=== PATIENT | male | born 1930 | race Two or more races ===

== ENCOUNTER 2017-02-06 13:15 | Emergency (ER) | payer OTHER, MEDICAID ==
[~2017-02-06] VITALS: Ht 162.6 cm; Wt 72.6 kg
[2017-02-06 13:32] VITALS: BP 127/81
== END 2017-02-06 17:11 | disposition left against medical advice (07) ==
LOC: ER 13:15
DX: R10.9 Unspecified abdominal pain (principal); Z53.21 Procedure and treatment not carried out due to patient leaving prior to being seen by health care provider
CPT/HCPCS: 93005

== ENCOUNTER 2017-12-30 09:09 | Emergency (ER) | payer OTHER, MEDICAID ==
[~2017-12-30] VITALS: Ht 157.5 cm; Wt 72.6 kg
[2017-12-30 10:06] LABS: Basophils # (auto) 0.1 uL; Basophils % (auto) 1.4 % (0.0-2.0); Eosinophils # (auto) 0.2 uL; Hemoglobin 15.6 g/dL (13.5-17.5); Lymphocytes # (auto) 1.1 uL; Lymphocytes % (auto) 24.8 % (10.0-50.0); Mean Corpuscular Hemoglobin 32.4 pg (28.0-32.0); Mean Corpuscular Volume 95.2 fL (80.0-100.0); Monocytes # (auto) 0.5 uL; Neutrophils # (auto) 2.7 uL; Neutrophils % (auto) 59.8 % (37.0-80.0); Nucleated Red Blood Cells % 0.1 %; Platelet Count (auto) 158 10^3/uL (140-450); Red Blood Cells 4.83 10^6/uL (4.5-5.90); Red Cell Distribution Width 13.8 % (11.8-14.3); White Blood Cell 4.6 10^3/uL (4.4-10.8)
[2017-12-30] MEDS ORDERED: ASPirin 81 mg TAB PO ONE (10:15)
[2017-12-30] MEDS ORDERED: NITROGLYCERIN 0.4 MG SL TAB SL ONE (10:15)
[2017-12-30 10:30] VITALS: BP 131/78
[2017-12-30 10:30] LABS: Alanine Aminotransferase 23 U/L (16-61); Albumin 3.6 g/dL (3.4-5.0); Alkaline Phosphatase 105 U/L (45-117); Anion Gap 7 (5-15); Aspartate Aminotransferase 18 U/L (15-37); BUN/Creatinine Ratio 18.8; Bilirubin, Total 0.7 mg/dL (0.2-1.0); Blood Urea Nitrogen 21 mg/dL (7-18); Calcium 8.7 mg/dL (8.5-10.1); Carbon Dioxide 27 mmol/L (21-32); Chloride 102 mmol/L (98-107); GFR African American 80 mL/min; GFR Non-African American 66 mL/min; Glucose 101 mg/dL (74-106); Magnesium 2.5 mg/dL (1.6-2.6); Potassium 3.6 mmol/L (3.5-5.1); Sodium 136 mmol/L (136-145); Total Protein 7.5 g/dL (6.4-8.2)
== END 2017-12-30 12:25 | disposition home or self-care (01) ==
LOC: ER 09:09
DX: R07.89 Other chest pain (principal); I10 Essential (primary) hypertension
CPT/HCPCS: 36415; 71046; 80053; 83735; 83880; 84484; 85025; 93005; 94761

== ENCOUNTER 2018-03-05 16:10 | Emergency (ER) | payer OTHER, MEDICAID ==
[2018-03-05] MEDS ORDERED: PANTOPRAZOLE 40 MG/10 ML VIAL IV STA (16:53)
[2018-03-05] MEDS ORDERED: ONDANSETRON HCL 4 MG/2 ML VIAL IV ONE (17:00)
[2018-03-05] MEDS ORDERED: MORPHINE SULFATE 4 MG/ML SYR/VIAL IV ONE (17:00)
[2018-03-05 17:28] LABS: Basophils # (auto) 0.1 uL; Basophils % (auto) 1.1 % (0.0-2.0); Eosinophils # (auto) 0.2 uL; Eosinophils % (auto) 2.7 % (0.0-7.0); Hematocrit 46.6 % (41.0-53.0); Hemoglobin 16.1 g/dL (13.5-17.5); Lymphocytes # (auto) 1.2 uL; Mean Corpuscular Hemoglobin 32.9 pg (28.0-32.0); Mean Corpuscular Hgb Conc. 34.4 g/dL (32.0-36.0); Mean Corpuscular Volume 95.6 fL (80.0-100.0); Monocytes # (auto) 0.6 uL; Monocytes % (auto) 10.3 % (0.0-12.0); Neutrophils # (auto) 4.1 uL; Neutrophils % (auto) 65.9 % (37.0-80.0); Nucleated Red Blood Cells % 0.2 %; Platelet Count (auto) 146 10^3/uL (140-450); Red Blood Cells 4.88 10^6/uL (4.5-5.90); Red Cell Distribution Width 13.8 % (11.8-14.3); White Blood Cell 6.2 10^3/uL (4.4-10.8)
[2018-03-05 17:45] LABS: Alanine Aminotransferase 22 U/L (16-61); Albumin 3.7 g/dL (3.4-5.0); Amylase 110 U/L (25-115); Anion Gap 11 (5-15); Aspartate Aminotransferase 24 U/L (15-37); Blood Urea Nitrogen 17 mg/dL (7-18); Calcium 8.6 mg/dL (8.5-10.1); Carbon Dioxide 27 mmol/L (21-32); Chloride 106 mmol/L (98-107); GFR African American 73 mL/min; GFR Non-African American 61 mL/min; Glucose 100 mg/dL (74-106); Lipase 211 U/L (73-393); Magnesium 2.3 mg/dL (1.6-2.6); Potassium 4.3 mmol/L (3.5-5.1); Sodium 144 mmol/L (136-145)
[2018-03-05 17:51] LABS: Alkaline Phosphatase 92 U/L (45-117); Bilirubin, Total 0.5 mg/dL (0.2-1.0); Total Protein 7.7 g/dL (6.4-8.2)
[2018-03-05 18:56] VITALS: BP 136/89
[2018-03-05 19:57] LABS: Urine Bacteria NONE SEEN /hpf (None Seen); Urine Blood Negative /uL (Negative); Urine Specific Gravity 1.013 (1.001-1.035); Urine WBC 3 /hpf (0 - 3)
== END 2018-03-05 20:47 | disposition home or self-care (01) ==
LOC: ER 16:10
DX: R10.31 Right lower quadrant pain (principal); R10.32 Left lower quadrant pain; R19.7 Diarrhea, unspecified; R11.0 Nausea; I10 Essential (primary) hypertension
CPT/HCPCS: 36415; 74176; 80053; 81001; 82150; 83690; 83735; 84484; 85025; 93005; 94761; 96374; 99284; C9113; J2405

== ENCOUNTER 2018-11-26 08:32 | Emergency (ER) | payer OTHER ==
[~2018-11-26] VITALS: Ht 160 cm; Wt 63.5 kg
[2018-11-26 09:17] VITALS: BP 166/88
[2018-11-26] MEDS ORDERED: TAMSULOSIN HYDROCHLORIDE 0.4 MG CAP PO ONE (10:00)
== END 2018-11-26 10:21 | disposition home or self-care (01) ==
LOC: ER 08:32
DX: Z76.0 Encounter for issue of repeat prescription (principal); I10 Essential (primary) hypertension

== ENCOUNTER 2018-12-10 09:49 | Emergency (ER) | payer OTHER ==
[2018-12-10 09:54] VITALS: BP 129/86
== END 2018-12-10 11:01 | disposition home or self-care (01) ==
LOC: ER 09:51
DX: I10 Essential (primary) hypertension (principal); Z76.0 Encounter for issue of repeat prescription

== ENCOUNTER 2018-12-18 09:09 | Emergency (ER) | payer OTHER ==
[~2018-12-18] VITALS: Ht 167.6 cm; Wt 68.9 kg
[2018-12-18 09:46] LABS: Basophils # (auto) 0 uL; Basophils % (auto) 0.8 % (0.0-2.0); Eosinophils # (auto) 0.1 uL; Eosinophils % (auto) 2.2 % (0.0-7.0); Hematocrit 49.1 % (41.0-53.0); Hemoglobin 16.6 g/dL (13.5-17.5); Lymphocytes # (auto) 1.1 uL; Lymphocytes % (auto) 25.6 % (10.0-50.0); Mean Corpuscular Hemoglobin 32.3 pg (28.0-32.0); Mean Corpuscular Hgb Conc. 33.8 g/dL (32.0-36.0); Mean Corpuscular Volume 95.5 fL (80.0-100.0); Monocytes # (auto) 0.4 uL; Monocytes % (auto) 8.5 % (0.0-12.0); Neutrophils # (auto) 2.7 uL; Neutrophils % (auto) 62.9 % (37.0-80.0); Nucleated Red Blood Cells % 0.1 %; Platelet Count (auto) 144 10^3/uL (140-450); Red Blood Cells 5.15 10^6/uL (4.5-5.90); Red Cell Distribution Width 14.1 % (11.8-14.3); White Blood Cell 4.3 10^3/uL (4.4-10.8)
[2018-12-18 10:05] LABS: Alanine Aminotransferase 17 U/L (16-61); Albumin 3.9 g/dL (3.4-5.0); Anion Gap 9 (5-15); Aspartate Aminotransferase 18 U/L (15-37); BUN/Creatinine Ratio 14.4; Blood Urea Nitrogen 16 mg/dL (7-18); Calcium 8.8 mg/dL (8.5-10.1); Carbon Dioxide 24 mmol/L (21-32); Chloride 104 mmol/L (98-107); GFR African American 81 mL/min; GFR Non-African American 67 mL/min; Glucose 115 mg/dL (74-106); Magnesium 1.9 mg/dL (1.6-2.6); Potassium 3.5 mmol/L (3.5-5.1); Sodium 137 mmol/L (136-145)
[2018-12-18 10:09] LABS: Alkaline Phosphatase 92 U/L (45-117); INR 1.01 (0.9-1.15); Partial Thromboplastin Time 28.9 sec (23.64-32.05); Total Protein 7.9 g/dL (6.4-8.2)
[2018-12-18 12:34] VITALS: BP 149/86
== END 2018-12-18 13:25 | disposition home or self-care (01) ==
LOC: ER 09:09
DX: M79.10 Myalgia, unspecified site (principal); K52.9 Noninfective gastroenteritis and colitis, unspecified; I10 Essential (primary) hypertension
CPT/HCPCS: 36415; 71046; 74176; 80053; 83735; 83880; 84484; 85025; 85610; 85730; 93005; 96372

== ENCOUNTER → 2019-01-18 | Outpatient (CLI) | payer MEDICARE, MEDICAID | END | disposition home or self-care (01) | LOC: Rad HDHVI 10:45 | PROVIDERS: ATTEND Internal Medicine Cardiovascular Disease | DX: R07.9 Chest pain, unspecified (principal); R06.02 Shortness of breath | CPT/HCPCS: 93306 ==

== ENCOUNTER → 2019-01-19 | Outpatient (CLI) | payer MEDICARE, MEDICAID ==
[~2019-01-19] VITALS: Ht 165.1 cm; Wt 73.9 kg
[~2019-01-19] MED LIST: ADENOSINE 62 MG in GIVE UN-DILUTED 0 ML IV ONE; ADENOSINE 90 MG/30 ML INJ IV ONE
[2019-01-19 12:02] LABS: Basophils # (auto) 0.1 uL; Basophils % (auto) 0.8 % (0.0-2.0); Eosinophils # (auto) 0.2 uL; Eosinophils % (auto) 2.4 % (0.0-7.0); Hematocrit 43.2 % (41.0-53.0); Hemoglobin 15.1 g/dL (13.5-17.5); Lymphocytes # (auto) 1.2 uL; Lymphocytes % (auto) 17.9 % (10.0-50.0); Mean Corpuscular Hgb Conc. 34.9 g/dL (32.0-36.0); Mean Corpuscular Volume 94.6 fL (80.0-100.0); Monocytes # (auto) 0.6 uL; Monocytes % (auto) 9.8 % (0.0-12.0); Neutrophils # (auto) 4.5 uL; Neutrophils % (auto) 69.1 % (37.0-80.0); Nucleated Red Blood Cells % 0.1 %; Platelet Count (auto) 171 10^3/uL (140-450); Red Blood Cells 4.57 10^6/uL (4.5-5.90); Red Cell Distribution Width 13.8 % (11.8-14.3); White Blood Cell 6.5 10^3/uL (4.4-10.8)
[2019-01-19 12:04] LABS: Urine Blood Negative /uL (Negative); Urine Specific Gravity 1.009 (1.001-1.035)
[2019-01-19 13:09] LABS: Potassium 3.9 mmol/L (3.5-5.1)
[2019-01-19 13:10] LABS: Albumin 4.1 g/dL (3.4-5.0); BUN/Creatinine Ratio 12.6
[2019-01-19 13:28] LABS: Free T4 (Free Thyroxine) 0.68 ng/dL (0.89-1.76)
[2019-01-19 13:29] LABS: Prostate Specific Antigen 2.41 ng/mL (0.0-4.0)
== END | disposition home or self-care (01) ==
LOC: Rad HDHVI 08:59
PROVIDERS: ATTEND Internal Medicine
DX: I70.0 Atherosclerosis of aorta (principal); E03.9 Hypothyroidism, unspecified; K90.9 Intestinal malabsorption, unspecified; E29.1 Testicular hypofunction; N39.0 Urinary tract infection, site not specified; C61 Malignant neoplasm of prostate; D51.9 Vitamin B12 deficiency anemia, unspecified; M48.54XA Collapsed vertebra, not elsewhere classified, thoracic region, initial encounter for fracture; Z79.899 Other long term (current) drug therapy
CPT/HCPCS: 36415; 71046; 78452; 80053; 80061; 81003; 82306; 82607; 83036; 84153; 84403; 84439; 84443; 85025; 93005; 96374; 96375; A9500; J0153

== ENCOUNTER 2019-02-02 14:31 | Emergency (ER) | payer MEDICARE, MEDICAID ==
[~2019-02-02] VITALS: Ht 167.6 cm; Wt 68.9 kg
[2019-02-02 14:45] VITALS: BP 126/69
[2019-02-02] MEDS ORDERED: KETOROLAC TROMETH 30 MG/ML 1ML VIAL IM ONE (16:15)
== END 2019-02-02 17:04 | disposition home or self-care (01) ==
LOC: ER 14:31
DX: S83.92XA Sprain of unspecified site of left knee, initial encounter (principal); M17.12 Unilateral primary osteoarthritis, left knee; I10 Essential (primary) hypertension; X50.1XXA Overexertion from prolonged static or awkward postures, initial encounter; Y93.89 Activity, other specified; Y92.89 Other specified places as the place of occurrence of the external cause; Y99.8 Other external cause status
CPT/HCPCS: 73562; 96372; 99283; J1885

== ENCOUNTER 2019-02-26 04:45 | Inpatient (IN) | payer MEDICARE, MEDICAID ==
[~2019-02-26] VITALS: Ht 167.6 cm; Wt 71.9 kg
[2019-02-26 05:40] LABS: Basophils # (auto) 0.1 uL; Eosinophils # (auto) 0.1 uL; Eosinophils % (auto) 1.1 % (0.0-7.0); Hematocrit 48.1 % (41.0-53.0); Lymphocytes # (auto) 1.5 uL; Lymphocytes % (auto) 18.6 % (10.0-50.0); Mean Corpuscular Hemoglobin 33.3 pg (28.0-32.0); Mean Corpuscular Hgb Conc. 35.3 g/dL (32.0-36.0); Mean Corpuscular Volume 94.3 fL (80.0-100.0); Monocytes # (auto) 0.9 uL; Monocytes % (auto) 10.8 % (0.0-12.0); Neutrophils # (auto) 5.5 uL; Neutrophils % (auto) 68.5 % (37.0-80.0); Nucleated Red Blood Cells % 0.1 %; Platelet Count (auto) 158 10^3/uL (140-450); Red Cell Distribution Width 14.1 % (11.8-14.3)
[2019-02-26 05:55] LABS: INR 1.06 (0.9-1.15); Partial Thromboplastin Time 28.1 sec (23.64-32.05)
[2019-02-26 06:01] LABS: Albumin 3.8 g/dL (3.4-5.0); Amylase 115 U/L (25-115); Anion Gap 6 (5-15); BUN/Creatinine Ratio 15.4; Blood Urea Nitrogen 20 mg/dL (7-18); Calcium 8.8 mg/dL (8.5-10.1); Carbon Dioxide 27 mmol/L (21-32); Chloride 103 mmol/L (98-107); GFR African American 67 mL/min; GFR Non-African American 56 mL/min; Glucose 99 mg/dL (74-106); Lipase 247 U/L (73-393); Potassium 3.3 mmol/L (3.5-5.1); Sodium 136 mmol/L (136-145)
[2019-02-26 06:06] LABS: Alanine Aminotransferase 27 U/L (16-61); Alkaline Phosphatase 108 U/L (45-117); Aspartate Aminotransferase 28 U/L (15-37); Bilirubin, Total 0.7 mg/dL (0.2-1.0); Total Protein 8.5 g/dL (6.4-8.2)
[2019-02-26] MEDS ORDERED: FAMOTIDINE (10MG/ML) 2ML VL IV ONE (06:30)
[2019-02-26] MEDS ORDERED: ONDANSETRON HCL 4 MG/2 ML VIAL IV ONE (06:45)
[2019-02-26] MEDS ORDERED: MORPHINE SULF INJ 2 MG/ML SYRINGE 1ML IV ONE (06:45)
[2019-02-26 08:14] LABS: Urine Bacteria FEW /hpf (None Seen); Urine Blood Negative /uL (Negative); Urine Mucus FEW (None Seen); Urine WBC 1 /hpf (0 - 3)
[2019-02-26] MEDS ORDERED: ACETAMINOPHEN 500 MG TAB PO PRN (09:30)
[2019-02-26] MEDS ORDERED: SOD CHL 0.9%/ KCL 20MEQ 1,000 ML IV ONE (09:30)
[2019-02-26] MEDS ORDERED: ONDANSETRON HCL 4 MG/2 ML VIAL IV PRN (09:30)
[2019-02-26] MEDS ORDERED: hydrALAZINE HCL 20 MG/ML VL IV PRN (09:30)
[2019-02-26] MEDS ORDERED: NITROGLYCERIN 0.4 MG SL TAB SL PRN (09:30)
[2019-02-26] MEDS ORDERED: HYDROcodone-ACET 5/325MG TAB PO PRN (09:30)
[2019-02-26] MEDS ORDERED: MORPHINE SULF INJ 2 MG/ML SYRINGE 1ML IV PRN ×2 (09:30)
[2019-02-26] MEDS: LEVOFLOXACIN 500MG 100 ML IV SCH (09:50)
[2019-02-26] MEDS: amLODIPine BESYLATE 5 MG TAB PO SCH (09:51)
[2019-02-26] MEDS: LOSARTAN POTASSIUM 25 MG TAB PO SCH (09:51)
[2019-02-26] MEDS: PANTOPRAZOLE 40 MG TAB PO SCH (09:52)
[2019-02-26] MEDS: metroNIDAZOLE 500MG/100ML 100 ML IV SCH ×2 (14:04→22:05)
[2019-02-26] MEDS: TAMSULOSIN HYDROCHLORIDE 0.4 MG CAP PO SCH (17:23)
--- NOTE | 2019-02-26 18:07 | NUR ---
RECEIVED REPORT FROM ALYCE SCHULER.
--- NOTE | 2019-02-26 18:30 | NUR ---
MS admit from ER [facility] admitted to tele/MS after SBAR received. Patient oriented to HEATHER MYERS, primary RN, unit, room, bed, and unit policies regarding patient care and visiting hours. Patient weighed by bedscale and encouraged to call if they need something. All questions and concerns addressed, patient verbalized understanding.
--- NOTE | 2019-02-26 19:54 | NUR ---
RECEIVED PT FROM DAY RN POC REVIEWED
[2019-02-26] MEDS: ATORVASTATIN 20 MG TAB PO SCH (22:05)
[2019-02-26] MEDS ORDERED: LOSA-39 PO (22:25)
[2019-02-26] MEDS ORDERED: OMEP20TA PO (22:25)
[2019-02-26] MEDS ORDERED: HYDR12.56 PO (22:25)
[2019-02-26] MEDS ORDERED: AMLO5TAB15 PO (22:25)
[2019-02-26] MEDS ORDERED: TAMS0.4C36 PO (22:25)
[2019-02-26] MEDS ORDERED: ROSU40TA PO (22:25)
[2019-02-26] MEDS ORDERED: VORT10TA PO (22:25)
--- NOTE | 2019-02-26 22:31 | NUR ---
RESTING COMFORTABLE WITH HOB UP NO C/O DISCOMFORT
[2019-02-26 22:39] VITALS: BP 124/74
[2019-02-27 05:00] VITALS: BP 119/75
--- NOTE | 2019-02-27 06:15 | NUR ---
RESTING WITH EYES CLOSED NO C/O DISCOMFORT
[2019-02-27] MEDS: metroNIDAZOLE 500MG/100ML 100 ML IV SCH ×3 (06:22→22:44)
--- NOTE | 2019-02-27 06:55 | NUR ---
REPORT GIVEN TO AM NURSE POC REVIEWED
[2019-02-27 07:09] LABS: Basophils # (auto) 0.1 uL; Basophils % (auto) 1.7 % (0.0-2.0); Eosinophils # (auto) 0.2 uL; Eosinophils % (auto) 3.1 % (0.0-7.0); Hematocrit 41.8 % (41.0-53.0); Hemoglobin 14.4 g/dL (13.5-17.5); Lymphocytes % (auto) 19.5 % (10.0-50.0); Mean Corpuscular Hemoglobin 32.8 pg (28.0-32.0); Mean Corpuscular Hgb Conc. 34.4 g/dL (32.0-36.0); Mean Corpuscular Volume 95.2 fL (80.0-100.0); Monocytes # (auto) 0.5 uL; Monocytes % (auto) 10.4 % (0.0-12.0); Neutrophils # (auto) 3.3 uL; Neutrophils % (auto) 65.3 % (37.0-80.0); Nucleated Red Blood Cells % 0.1 %; Platelet Count (auto) 140 10^3/uL (140-450); Red Blood Cells 4.39 10^6/uL (4.5-5.90); Red Cell Distribution Width 13.9 % (11.8-14.3)
[2019-02-27 07:22] LABS: BUN/Creatinine Ratio 10.5; Calcium 8.8 mg/dL (8.5-10.1)
[2019-02-27 09:50] VITALS: BP 124/76
[2019-02-27] MEDS: PANTOPRAZOLE 40 MG TAB PO SCH (10:08)
[2019-02-27] MEDS: LEVOFLOXACIN 500MG 100 ML IV SCH (10:08)
[2019-02-27] MEDS: amLODIPine BESYLATE 5 MG TAB PO SCH (10:09)
[2019-02-27] MEDS: LOSARTAN POTASSIUM 25 MG TAB PO SCH (10:09)
[2019-02-27 14:17] VITALS: BP 107/62
[2019-02-27 16:37] VITALS: BP 119/61
[2019-02-27] MEDS: TAMSULOSIN HYDROCHLORIDE 0.4 MG CAP PO SCH (17:22)
--- NOTE | 2019-02-27 19:49 | NUR ---
received report from day rn poc reviewed
[2019-02-27] MEDS: ATORVASTATIN 20 MG TAB PO SCH (22:40)
[2019-02-27 22:56] VITALS: BP 109/55
--- NOTE | 2019-02-28 00:25 | NUR ---
resting comfortable with eyes closed no c/o discomfort
[2019-02-28 05:57] VITALS: BP 115/64
[2019-02-28 06:03] LABS: Basophils # (auto) 0 uL; Basophils % (auto) 0.8 % (0.0-2.0); Eosinophils # (auto) 0.2 uL; Eosinophils % (auto) 3.8 % (0.0-7.0); Hematocrit 41.7 % (41.0-53.0); Hemoglobin 14.6 g/dL (13.5-17.5); Lymphocytes # (auto) 1.2 uL; Lymphocytes % (auto) 21.9 % (10.0-50.0); Mean Corpuscular Hemoglobin 33.1 pg (28.0-32.0); Mean Corpuscular Hgb Conc. 34.9 g/dL (32.0-36.0); Mean Corpuscular Volume 94.7 fL (80.0-100.0); Monocytes # (auto) 0.5 uL; Monocytes % (auto) 10.1 % (0.0-12.0); Neutrophils # (auto) 3.4 uL; Neutrophils % (auto) 63.4 % (37.0-80.0); Platelet Count (auto) 130 10^3/uL (140-450); Red Cell Distribution Width 13.7 % (11.8-14.3); White Blood Cell 5.4 10^3/uL (4.4-10.8)
[2019-02-28] MEDS: metroNIDAZOLE 500MG/100ML 100 ML IV SCH ×2 (06:21→14:07)
[2019-02-28 06:23] LABS: Calcium 8.6 mg/dL (8.5-10.1); Potassium 4.3 mmol/L (3.5-5.1)
[2019-02-28 06:26] LABS: BUN/Creatinine Ratio 12.2
--- NOTE | 2019-02-28 07:30 | NUR ---
Opening Shift Note Assumed care of patient, awake and alert. No S/S of distress/SOB or pain. Instructed on POC and to call for assist PRN, will continue to monitor for changes Q1hr and PRN.
[2019-02-28 08:47] VITALS: BP 130/69
[2019-02-28] MEDS: PANTOPRAZOLE 40 MG TAB PO SCH (09:29)
[2019-02-28] MEDS: LOSARTAN POTASSIUM 25 MG TAB PO SCH (09:30)
[2019-02-28] MEDS: LEVOFLOXACIN 500MG 100 ML IV SCH (09:30)
[2019-02-28 13:00] VITALS: BP 114/65
--- NOTE | 2019-02-28 17:00 | NUR ---
Discharge instructions given as ordered. Encourage to follow up with PMD as instructed. All questions and concerns addressed. Patient verbalized understanding. Medication reconciliation form completed and copy given to patient. . IV removed with catheter intact, pressure dressing applied, hernandez catheter removed. . Patient taken to vehicle via wheelchair with all personal belongings, accompanied by staff and family member. No distress noted at time of departure.
== END 2019-02-28 16:45 | disposition home or self-care (01) | DRG 392 ==
LOC: ER 04:45 → OVERFLOW 04:46 → CENTRAL 18:30
PROVIDERS: ADMIT Nurse Practitioner Acute Care; ATTEND Internal Medicine
DX: K52.9 Noninfective gastroenteritis and colitis, unspecified (principal); K80.20 Calculus of gallbladder without cholecystitis without obstruction; E87.6 Hypokalemia; I10 Essential (primary) hypertension; E78.00 Pure hypercholesterolemia, unspecified; N40.0 Benign prostatic hyperplasia without lower urinary tract symptoms; F32.9 Major depressive disorder, single episode, unspecified; I12.9 Hypertensive chronic kidney disease with stage 1 through stage 4 chronic kidney disease, or unspecified chronic kidney disease; N18.2 Chronic kidney disease, stage 2 (mild); E78.5 Hyperlipidemia, unspecified; K57.30 Diverticulosis of large intestine without perforation or abscess without bleeding; K21.9 Gastro-esophageal reflux disease without esophagitis; Z90.49 Acquired absence of other specified parts of digestive tract
CPT/HCPCS: 36415; 74176; 80048; 80053; 81001; 82150; 83690; 84484; 85025; 85610; 85730; 93005; G0378; J1956; J2405; J3490

== ENCOUNTER 2019-03-11 09:54 | Emergency (ER) | payer MEDICARE, MEDICAID ==
[~2019-03-11] VITALS: Ht 152.4 cm; Wt 73.5 kg
[~2019-03-11 09:54] MED LIST changes: -ADENOSINE 62 MG in GIVE UN-DILUTED 0 ML IV ONE; -ADENOSINE 90 MG/30 ML INJ IV ONE; +AMLO5TAB15 PO; +HYDR12.56 PO; +LOSA-39 PO; +OMEP20TA PO; +ROSU40TA PO; +TAMS0.4C36 PO; +VORT10TA PO
[2019-03-11 10:17] LABS: Basophils # (auto) 0 uL; Basophils % (auto) 0.7 % (0.0-2.0); Eosinophils # (auto) 0 uL; Eosinophils % (auto) 0.8 % (0.0-7.0); Hematocrit 46.4 % (41.0-53.0); Hemoglobin 16.2 g/dL (13.5-17.5); Lymphocytes # (auto) 1.2 uL; Lymphocytes % (auto) 21.5 % (10.0-50.0); Mean Corpuscular Hemoglobin 33.3 pg (28.0-32.0); Mean Corpuscular Volume 95.1 fL (80.0-100.0); Monocytes # (auto) 0.4 uL; Monocytes % (auto) 6.1 % (0.0-12.0); Neutrophils # (auto) 4.1 uL; Neutrophils % (auto) 70.9 % (37.0-80.0); Platelet Count (auto) 148 10^3/uL (140-450); Red Blood Cells 4.87 10^6/uL (4.5-5.90); Red Cell Distribution Width 14.1 % (11.8-14.3); White Blood Cell 5.8 10^3/uL (4.4-10.8)
[2019-03-11 10:35] VITALS: BP 144/87
[2019-03-11 10:40] LABS: Albumin 4.1 g/dL (3.4-5.0); Calcium 8.8 mg/dL (8.5-10.1); Potassium 3.8 mmol/L (3.5-5.1)
[2019-03-11 10:43] LABS: BUN/Creatinine Ratio 10.9; Bilirubin, Total 0.8 mg/dL (0.2-1.0); Total Protein 7.9 g/dL (6.4-8.2)
[2019-03-11 10:47] LABS: Urine Bacteria NONE SEEN /hpf (None Seen); Urine Blood Negative /uL (Negative); Urine Mucus FEW (None Seen); Urine Specific Gravity 1.007 (1.001-1.035); Urine WBC <1 /hpf (0 - 3)
== END 2019-03-11 12:30 | disposition home or self-care (01) ==
LOC: ER 09:54
DX: G44.209 Tension-type headache, unspecified, not intractable (principal); I10 Essential (primary) hypertension; K21.9 Gastro-esophageal reflux disease without esophagitis; E78.5 Hyperlipidemia, unspecified; Z79.899 Other long term (current) drug therapy
CPT/HCPCS: 36415; 70450; 80053; 81001; 85025; 93005

== ENCOUNTER 2019-03-21 17:27 | Inpatient (IN) | payer MEDICARE, MEDICAID ==
[~2019-03-21] VITALS: Ht 162.6 cm; Wt 74.2 kg
[2019-03-21] MEDS ORDERED: ACETAMINOPHEN 325 MG TAB PO ONE ×2 (17:42→18:00)
[2019-03-21] MEDS ORDERED: SODIUM CHLORIDE 0.9% 1,000 ML IV ONE (18:00)
[2019-03-21] MEDS ORDERED: SODIUM CHLORIDE 0.9% 1,000 ML IVB ONE (18:53)
[2019-03-21 18:59] LABS: Basophils # (auto) 0.1 uL; Basophils % (auto) 0.3 % (0.0-2.0); Eosinophils # (auto) 0 uL; Hematocrit 40.9 % (41.0-53.0); Lymphocytes # (auto) 0.8 uL; Mean Corpuscular Hemoglobin 32.9 pg (28.0-32.0); Mean Corpuscular Hgb Conc. 34.2 g/dL (32.0-36.0); Mean Corpuscular Volume 96.2 fL (80.0-100.0); Monocytes # (auto) 1.3 uL; Monocytes % (auto) 6.5 % (0.0-12.0); Neutrophils # (auto) 17.2 uL; Neutrophils % (auto) 89.2 % (37.0-80.0); Platelet Count (auto) 102 10^3/uL (140-450); Red Blood Cells 4.25 10^6/uL (4.5-5.90); Red Cell Distribution Width 14.6 % (11.8-14.3); White Blood Cell 19.2 10^3/uL (4.4-10.8)
[2019-03-21 19:11] LABS: Albumin 3.2 g/dL (3.4-5.0); Calcium 8.3 mg/dL (8.5-10.1); Potassium 3.4 mmol/L (3.5-5.1)
[2019-03-21 19:13] LABS: Total Protein 6.9 g/dL (6.4-8.2)
[2019-03-21 19:56] LABS: Urine Bacteria MANY /hpf (None Seen); Urine Blood 1+ /uL (Negative); Urine Mucus FEW (None Seen); Urine Specific Gravity 1.015 (1.001-1.035); Urine WBC 98 /hpf (0 - 3)
[2019-03-21] MEDS ORDERED: cefTRIAXone 1GM/50ML D5W 50 ML IV ONE (21:30)
[2019-03-21] MEDS ORDERED: POTASSIUM CHL 20 Meq TABLET PO ONE (22:00)
[2019-03-21] MEDS ORDERED: ONDANSETRON HCL 4 MG/2 ML VIAL IV PRN (22:00)
[2019-03-21] MEDS ORDERED: LEVOFLOXACIN 500MG 100 ML IV ONE (22:00)
[2019-03-21] MEDS ORDERED: HYDROcodone-ACET 5/325MG TAB PO PRN (22:00)
[2019-03-21] MEDS ORDERED: TEMAZEPAM 15 MG CAP PO PRN (22:00)
[2019-03-21 22:13] LABS: Hemoglobin 13.2 g/dL (13.5-17.5)
[2019-03-21] MEDS: SODIUM CHLORIDE 0.9% 1,000 ML IV SCH (22:59)
--- NOTE | 2019-03-22 00:10 | NUR ---
MS admit from [facility] admitted to tele/MS after SBAR received. Patient oriented to Janessa Garcia, primary RN, unit, room, bed, and unit policies regarding patient care and visiting hours. Patient weighed by bedscale and encouraged to call if they need something. All questions and concerns addressed, patient verbalized understanding. Note:MALCOLM GRANT ACTING INTERPETER FOR PT WHO IS [facility] SPEAKING ONLY.
[2019-03-22 05:00] VITALS: BP 129/75
[2019-03-22] MEDS: LEVOTHYROXINE SODIUM 50 MCG TAB PO SCH (05:06)
--- NOTE | 2019-03-22 06:42 | NUR ---
PT AMBULATED TO THE BATHROOM;HAD BM;ASSISTED BACK TO BED;RESTING WITH EYES CLOSED;RESP EVEN UNLAB WITH CALL LIGHT ON AND BED ALARM ON FOR SAFETY.
[2019-03-22 07:16] LABS: Basophils # (auto) 0.1 uL; Basophils % (auto) 0.4 % (0.0-2.0); Eosinophils # (auto) 0 uL; Hematocrit 40.3 % (41.0-53.0); Hemoglobin 13.8 g/dL (13.5-17.5); Lymphocytes # (auto) 0.8 uL; Lymphocytes % (auto) 4.6 % (10.0-50.0); Mean Corpuscular Hgb Conc. 34.2 g/dL (32.0-36.0); Mean Corpuscular Volume 96.5 fL (80.0-100.0); Monocytes # (auto) 0.8 uL; Neutrophils # (auto) 15.2 uL; Nucleated Red Blood Cells % 0.1 %; Platelet Count (auto) 95 10^3/uL (140-450); Red Blood Cells 4.18 10^6/uL (4.5-5.90); Red Cell Distribution Width 14.4 % (11.8-14.3); White Blood Cell 16.9 10^3/uL (4.4-10.8)
[2019-03-22 07:36] LABS: Albumin 2.9 g/dL (3.4-5.0); Calcium 8.1 mg/dL (8.5-10.1); Potassium 4.5 mmol/L (3.5-5.1)
[2019-03-22 07:39] LABS: BUN/Creatinine Ratio 11.5; Bilirubin, Total 1.7 mg/dL (0.2-1.0); Total Protein 6.6 g/dL (6.4-8.2)
[2019-03-22 08:41] VITALS: BP 144/79
[2019-03-22] MEDS: PANTOPRAZOLE 40 MG TAB PO SCH (09:31)
[2019-03-22] MEDS ORDERED: cefTRIAXone 1GM/50ML D5W 50 ML IV ONE (11:15)
[2019-03-22 13:00] VITALS: BP 155/84
[2019-03-22] MEDS: SODIUM CHLORIDE 0.9% 1,000 ML IV SCH (13:25)
[2019-03-22] MEDS: ACETAMINOPHEN 325 MG TAB PO PRN ×2 (13:30→21:43)
[2019-03-22 17:00] VITALS: BP 113/64
[2019-03-22] MEDS ORDERED: LEVOFLOXACIN 500MG 100 ML IV SCH (18:00)
[2019-03-22] MEDS: TAMSULOSIN HYDROCHLORIDE 0.4 MG CAP PO SCH (18:29)
--- NOTE | 2019-03-22 20:00 | NUR ---
RECEIVE IN BED IS WATCHING TV NO VOICED COMPLAINTS
[2019-03-22 22:00] VITALS: BP 142/86
[2019-03-23] MEDS: SODIUM CHLORIDE 0.9% 1,000 ML IV SCH ×3 (02:00→21:59)
[2019-03-23] MEDS: ACETAMINOPHEN 325 MG TAB PO PRN ×2 (04:47→17:42)
[2019-03-23 05:00] VITALS: BP 141/81
[2019-03-23 06:01] LABS: Basophils # (auto) 0 uL; Basophils % (auto) 0.2 % (0.0-2.0); Eosinophils # (auto) 0 uL; Eosinophils % (auto) 0.3 % (0.0-7.0); Hematocrit 36.5 % (41.0-53.0); Hemoglobin 12.8 g/dL (13.5-17.5); Lymphocytes # (auto) 0.3 uL; Lymphocytes % (auto) 3.6 % (10.0-50.0); Mean Corpuscular Hemoglobin 33.5 pg (28.0-32.0); Mean Corpuscular Hgb Conc. 35.2 g/dL (32.0-36.0); Mean Corpuscular Volume 95.2 fL (80.0-100.0); Monocytes # (auto) 0.6 uL; Neutrophils # (auto) 8.6 uL; Neutrophils % (auto) 89.9 % (37.0-80.0); Platelet Count (auto) 91 10^3/uL (140-450); Red Blood Cells 3.83 10^6/uL (4.5-5.90); Red Cell Distribution Width 14.4 % (11.8-14.3); White Blood Cell 9.6 10^3/uL (4.4-10.8)
[2019-03-23 06:19] LABS: Potassium 3.5 mmol/L (3.5-5.1)
[2019-03-23 06:28] LABS: BUN/Creatinine Ratio 15.6; Calcium 7.6 mg/dL (8.5-10.1)
[2019-03-23] MEDS: LEVOTHYROXINE SODIUM 50 MCG TAB PO SCH (06:30)
[2019-03-23 08:00] VITALS: BP 157/91
[2019-03-23] MEDS: cefTRIAXone 1GM/50ML D5W 50 ML IV SCH (10:03)
[2019-03-23] MEDS: PANTOPRAZOLE 40 MG TAB PO SCH (10:04)
[2019-03-23] MEDS ORDERED: HYDROCORTISONE ACET 25 MG RECTAL SUPP PR ONE (11:00)
[2019-03-23 12:00] VITALS: BP 154/82
[2019-03-23 17:00] VITALS: BP 145/76
[2019-03-23] MEDS: TAMSULOSIN HYDROCHLORIDE 0.4 MG CAP PO SCH (17:42)
--- NOTE | 2019-03-23 17:45 | NUR ---
Fever Patient had temperature of 100.1. No complaints from pt other than feeling cold. This nurse gave PRN Tylenol and removed two blankets.
--- NOTE | 2019-03-23 18:55 | NUR ---
Temp. Checked patient again after giving PRN Tylenol. Temperature is now 97.9 axillary. Patient was eating dinner and outside the covers.
--- NOTE | 2019-03-23 19:35 | NUR ---
Opening Shift Note Assumed care of patient, awake and alert oriented x4. No S/S of distress/SOB or pain noted. Instructed on POC and to call for assist PRN. Bed is in lowest locked position with bed rails up x2 and call light is within reach of the patient.
[2019-03-23 21:45] VITALS: BP 129/75
[2019-03-23] MEDS: HYDROCORTISONE ACET 25 MG RECTAL SUPP PR SCH (21:59)
[2019-03-24 04:43] VITALS: BP 146/90
[2019-03-24 05:36] LABS: Basophils # (auto) 0.1 uL; Basophils % (auto) 1.3 % (0.0-2.0); Eosinophils # (auto) 0.1 uL; Eosinophils % (auto) 2.1 % (0.0-7.0); Hematocrit 38.2 % (41.0-53.0); Hemoglobin 13.1 g/dL (13.5-17.5); Lymphocytes # (auto) 0.3 uL; Lymphocytes % (auto) 5.4 % (10.0-50.0); Mean Corpuscular Hemoglobin 32.9 pg (28.0-32.0); Mean Corpuscular Hgb Conc. 34.4 g/dL (32.0-36.0); Mean Corpuscular Volume 95.5 fL (80.0-100.0); Monocytes # (auto) 0.6 uL; Monocytes % (auto) 12.9 % (0.0-12.0); Neutrophils # (auto) 3.9 uL; Neutrophils % (auto) 78.3 % (37.0-80.0); Nucleated Red Blood Cells % 0.2 %; Platelet Count (auto) 114 10^3/uL (140-450); Red Cell Distribution Width 14.3 % (11.8-14.3); White Blood Cell 4.9 10^3/uL (4.4-10.8)
[2019-03-24 06:02] LABS: Calcium 7.8 mg/dL (8.5-10.1); Potassium 3.3 mmol/L (3.5-5.1)
[2019-03-24] MEDS: LEVOTHYROXINE SODIUM 50 MCG TAB PO SCH (06:56)
[2019-03-24 08:00] VITALS: BP 166/91
[2019-03-24] MEDS: cefTRIAXone 1GM/50ML D5W 50 ML IV SCH (09:14)
[2019-03-24] MEDS: HYDROCORTISONE ACET 25 MG RECTAL SUPP PR SCH ×2 (09:50→22:07)
[2019-03-24] MEDS: PANTOPRAZOLE 40 MG TAB PO SCH (09:50)
[2019-03-24] MEDS ORDERED: POTASSIUM CHL 20 Meq TABLET PO ONE (10:15)
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
--- NOTE | 2019-03-24 13:00 | NUR ---
Daughter at bedside/Pt concerns Daughter, Elvia, came to visit patient. She explained that he has a urology appointment with Dr. Pineda in April. She explained to the patient that he may be discharge Tuesday if everything looks ok and is currently receiving antibiotics for his infection. Patient was concerned that he would have the [place] bag for the rest of his life. This nurse informed him that the plan was for it to be removed at the follow up visit, but that would depend on the evaluation by the urologist. He confused the Sierra with a time in the past (reportedly 25 years ago per pt) when he was told he may have a bag for the rest of his life when he had stomach issues. He said he had refused that back then. He was pointing to his stomach. This nurse explained that it must have been in reference to a possible colostomy and that this was something different. Also informed him that he would not have to carry the bag around with him, but could use a leg bag instead. After conversing with the patient and clarifying information, patient was relieved and thankful and daughter better understood the situation.
[2019-03-24 14:08] VITALS: BP 159/83
--- NOTE | 2019-03-24 16:00 | NUR ---
Blood in stool Patient had a bowel movement. It was look with bright red blood present. Will notify Dr. Gutiérrez. Patient denies feeling lightheaded or dizzy. No c/o abdominal pain at this time. Addendum: 03/24/19 at 1648 by EARLINE DURON RN RN Stool was soft/loose. PBX reported that Dr. Gutiérrez was gone for the night and they would page Hadley Bee NP. Have not heard back at this time. Will continue to monitor patient. Patient does have hemorrhoids present.
[2019-03-24 16:53] VITALS: BP 160/82
--- NOTE | 2019-03-24 17:14 | NUR ---
New orders-blood in stool Received call from Hadley Bee NP. New orders for H&H, occult stool, and monitor patient. Orders were put in. Will also pass information along to night shift manager to monitor patient.
[2019-03-24 17:39] LABS: Hematocrit 38.8 % (41.0-53.0); Hemoglobin 13.4 g/dL (13.5-17.5)
[2019-03-24] MEDS: TAMSULOSIN HYDROCHLORIDE 0.4 MG CAP PO SCH (17:40)
--- NOTE | 2019-03-24 19:29 | NUR ---
Opening Shift Note Assumed care of patient, awake and alert oriented x4. No S/S of distress/SOB noted. Bed is in lowest locked position with bed rails up x2 and call light is within reach of the patient. Instructed on POC and to call for assist PRN. Instructed patient to call this RN when having a bowel movement to collect stool blood occult sample. Patient verbalized understanding. Patient reports no pain.
--- NOTE | 2019-03-24 20:32 | NUR ---
stool blood occult sent: Sent sample for stool blood occult. Patient had bright red liquid blood in hat and some formed stools. Collected sample and sent sample to lab for testing. Patient reports no light headed dizziness or pain.
[2019-03-24 22:00] VITALS: BP 131/73
[2019-03-25 05:00] VITALS: BP 149/92
[2019-03-25 05:30] LABS: Basophils # (auto) 0 uL; Basophils % (auto) 0.7 % (0.0-2.0); Eosinophils # (auto) 0.2 uL; Eosinophils % (auto) 2.9 % (0.0-7.0); Hematocrit 38.5 % (41.0-53.0); Hemoglobin 13.6 g/dL (13.5-17.5); Lymphocytes # (auto) 0.9 uL; Lymphocytes % (auto) 16.1 % (10.0-50.0); Mean Corpuscular Hemoglobin 33.3 pg (28.0-32.0); Mean Corpuscular Hgb Conc. 35.3 g/dL (32.0-36.0); Mean Corpuscular Volume 94.3 fL (80.0-100.0); Monocytes % (auto) 17.5 % (0.0-12.0); Neutrophils # (auto) 3.5 uL; Neutrophils % (auto) 62.8 % (37.0-80.0); Platelet Count (auto) 144 10^3/uL (140-450); Red Blood Cells 4.08 10^6/uL (4.5-5.90); Red Cell Distribution Width 14.4 % (11.8-14.3); White Blood Cell 5.6 10^3/uL (4.4-10.8)
[2019-03-25] MEDS: LEVOTHYROXINE SODIUM 50 MCG TAB PO SCH (06:34)
--- NOTE | 2019-03-25 06:52 | NUR ---
Closing note: Patient resting in bed with breaths even and unlabored. No S/S of distress noted. Bed is in lowest locked position with bed rails up x2 and call light is within reach of the patient. Patient reports having a bowel movement today but notes no blood in stool this morning. Will endorse care to day shift nurse. Addendum: 03/25/19 at 0658 by Serene Xie RN RN This RN was not able to assess patients stool, patient had used the toilet
--- NOTE | 2019-03-25 07:20 | NUR ---
Opening Shift Note Assumed care of patient, awake and alert. No S/S of distress/SOB or pain. Instructed on POC and to call for assist PRN, will continue to monitor for changes Q1hr and PRN. Bed locked in lowest position with two side rails up and call light in reach.
[2019-03-25 08:00] VITALS: BP 144/91
[2019-03-25 09:00] VITALS: BP 144/91
[2019-03-25] MEDS: PANTOPRAZOLE 40 MG TAB PO SCH (10:14)
[2019-03-25] MEDS: cefTRIAXone 1GM/50ML D5W 50 ML IV SCH (10:14)
[2019-03-25] MEDS: HYDROCORTISONE ACET 25 MG RECTAL SUPP PR SCH ×2 (10:15→21:30)
--- NOTE | 2019-03-25 12:10 | NUR ---
Nutrition Assessment Notes please see attached link for complete assessment Est. Needs BW 77 [id number] kcal (20-23 kcal/kgBW), 77-84 gms pro (1.0-1.1 gms/kgBW). Will continue to monitor pertinent labs and reassess nutrient need prn Addendum: 03/25/19 at [address] Amended: Links added.
[2019-03-25 13:00] VITALS: BP 128/75
[2019-03-25 17:00] VITALS: BP 150/89
--- NOTE | 2019-03-25 17:21 | NUR ---
PATIENT C/O BLOODY TOILET BOWL. PATIENT STATES HE FELT THE NEED TO URINATE EVEN THOUGH HE HAS A PÉREZ. PATIENT SAT ON TOILET HE FELT PRESSURE AND BLOOD DRIPPED FROM ANAL AREA. I ASSESSED BOWL AND NOTED BRIGHT RED BLOODY WATER WITH NO STOOL. PATIENT DOES HOWEVER HAVE A PROTRUDING HEMORRHOID THAT WAS NOTED ON MORNING ASSESSMENT AND MEDICATION ADMINISTRATION OF SUPPOSITORY. CALLED AND NOTIFIED CONCRETE MIXER OPERATOR HELPER HOSPITALIST SHIRLEY CASTILLO ORDERS RECEIVED FOR COLACE 100 MG CAPSULE BID. PATIENT HGB 13.6 AND NO SYMPTOMS NOTED.
[2019-03-25] MEDS: TAMSULOSIN HYDROCHLORIDE 0.4 MG CAP PO SCH (17:47)
--- NOTE | 2019-03-25 19:20 | NUR ---
Opening Shift Note Assumed care of patient, awake and alert oriented x4. No S/S of distress/SOB or pain noted. Instructed on POC and to call for assist PRN. Bed in lowest locked position, side rails up, call light within reach. Will round every hour and as needed and continue to monitor.
[2019-03-25] MEDS: DOCUSATE SOD 100 MG CAP PO SCH (21:30)
[2019-03-25 22:00] VITALS: BP 111/73
[2019-03-26 05:00] VITALS: BP 158/83
--- NOTE | 2019-03-26 07:00 | NUR ---
Patient reporting one episode of bloody stool, per patient amount of blood was "about the same as before." No s/s of dizziness or distress. Bowel movement unable to be assessed by this RN, patient had flushed toilet prior to making RN aware. Vital signs within normal limits, will continue care.
[2019-03-26] MEDS: LEVOTHYROXINE SODIUM 50 MCG TAB PO SCH (07:12)
--- NOTE | 2019-03-26 07:20 | NUR ---
Closing Note Patient lying in bed, awake and alert. Bed in lowest locked position, side rails up x2, call light within reach. No s/s of distress. Care endorsed to dayshift RN.
[2019-03-26 08:00] VITALS: BP 142/81
[2019-03-26 09:00] VITALS: BP 142/81
[2019-03-26] MEDS: DOCUSATE SOD 100 MG CAP PO SCH (09:41)
[2019-03-26] MEDS: PANTOPRAZOLE 40 MG TAB PO SCH (09:41)
[2019-03-26] MEDS: cefTRIAXone 1GM/50ML D5W 50 ML IV SCH (09:41)
[2019-03-26] MEDS: HYDROCORTISONE ACET 25 MG RECTAL SUPP PR SCH (09:41)
[2019-03-26 13:00] VITALS: BP 136/68
[2019-03-26 13:20] VITALS: BP 142/81
--- NOTE | 2019-03-26 15:04 | NUR ---
Discharge instructions given as ordered. Encourage to follow up with PMD as instructed. All questions and concerns addressed. Patient verbalized understanding. Medication reconciliation form completed and copy given to patient. No Home medications held in Pharmacy and none to be returned to patient, and no needed vaccines given. IV removed with catheter intact, pressure dressing applied, hernandez catheter remains in place per doctors order with leg bag. Patient taken to vehicle via wheelchair with all personal belongings, accompanied by staff and family member. No distress noted at time of departure.
--- NOTE | 2019-03-26 15:43 | NUR ---
Assessment and SS consult Pt is an 88 year old alert and oriented Japanese speaking male. Assessment conducted through subacute nurse. SS consult given for "D/c planning. Pt does not wish to return home with daughter." Prior to admit, pt was temporarily staying with his daughter Elvia Patterson, who is his emergency contact at [phone]. Prior to moving in with Elvia, Pt was living with other family members but they went on vacation. Pt stated that he doesn't want to live with them and is planning on staying with Elvia permanently from now on. Pt is currently ambulatory, doesn't use DME, and is independent with ADL's. Pt gets $790 monthly and received POA paperwork in Japanese. Pt's daughter will transport home upon d/c. Pt will d/c back home with Elvia upon d/c. No needs stated at this time. Addendum: 03/26/19 at 1551 by ZULMA CESAR Amended: Links added.
== END 2019-03-26 15:10 | disposition home or self-care (01) | DRG 872 ==
LOC: ER 17:27 → OVERFLOW 17:28 → CENTRAL 23:40
PROVIDERS: ADMIT Nurse Practitioner; ATTEND Internal Medicine
DX: A41.51 Sepsis due to Escherichia coli [E. coli] (principal); N30.01 Acute cystitis with hematuria; N13.9 Obstructive and reflux uropathy, unspecified; D69.6 Thrombocytopenia, unspecified; E87.6 Hypokalemia; K40.20 Bilateral inguinal hernia, without obstruction or gangrene, not specified as recurrent; K57.30 Diverticulosis of large intestine without perforation or abscess without bleeding; K80.20 Calculus of gallbladder without cholecystitis without obstruction; N40.1 Benign prostatic hyperplasia with lower urinary tract symptoms; I25.10 Atherosclerotic heart disease of native coronary artery without angina pectoris; K64.9 Unspecified hemorrhoids; K21.9 Gastro-esophageal reflux disease without esophagitis; R33.8 Other retention of urine; E78.5 Hyperlipidemia, unspecified; I10 Essential (primary) hypertension; Z90.49 Acquired absence of other specified parts of digestive tract; Z79.899 Other long term (current) drug therapy; Z85.46 Personal history of malignant neoplasm of prostate
CPT/HCPCS: 36415; 71045; 74176; 80048; 80053; 81001; 82270; 83605; 83735; 85014; 85018; 85025; 87040; 87077; 87086; 87088; 87186; 87493; 93005; 96361; 96365; G0378; J0696; J1956

== ENCOUNTER → 2019-09-09 | Emergency (ER) | payer OTHER, MEDICAID ==
[~2019-09-09] VITALS: Ht 137.2 cm; Wt 68.0 kg
[2019-09-09 18:47] VITALS: BP 132/63
== END | disposition home or self-care (01) ==
LOC: ER 17:53
DX: T83.018A Breakdown (mechanical) of other urinary catheter, initial encounter (principal); N39.0 Urinary tract infection, site not specified; E78.5 Hyperlipidemia, unspecified; K21.9 Gastro-esophageal reflux disease without esophagitis; I10 Essential (primary) hypertension; N40.1 Benign prostatic hyperplasia with lower urinary tract symptoms

== ENCOUNTER 2019-09-23 09:36 | Emergency (ER) | payer OTHER, MEDICAID ==
[~2019-09-23] VITALS: Ht 160 cm; Wt 72.6 kg
[2019-09-23 11:14] LABS: Basophils # (auto) 0 10 ^3/uL (0-0.2); Eosinophils # (auto) 0 10 ^3/uL (0-0.8); Eosinophils % (auto) 0.8 % (0.0-7.0); Lymphocytes # (auto) 0.5 10 ^3/uL (0.4-5.4); Monocytes # (auto) 0.4 10 ^3/uL (0-1.3); Neutrophils # (auto) 3.5 10 ^3/uL (1.6-8.6); Neutrophils % (auto) 79.3 % (37.0-80.0); White Blood Cell 4.4 10^3/uL (4.4-10.8)
[2019-09-23 11:18] LABS: Basophils % (auto) 0.7 % (0.0-2.0); Hematocrit 35.1 % (41.0-53.0); Hemoglobin 11.6 g/dL (13.5-17.5); Lymphocytes % (auto) 10.6 % (10.0-50.0); Mean Corpuscular Hemoglobin 27.4 pg (28.0-32.0); Mean Corpuscular Volume 83.1 fL (80.0-100.0); Monocytes % (auto) 8.6 % (0.0-12.0); Platelet Count (auto) 190 10^3/uL (140-450); Red Blood Cells 4.22 10^6/uL (4.5-5.90); Red Cell Distribution Width 17.6 % (11.8-14.3)
[2019-09-23 11:38] LABS: Chloride 108 mmol/L (98-107); Potassium 3.5 mmol/L (3.5-5.1); Sodium 140 mmol/L (136-145)
[2019-09-23] MEDS ORDERED: SODIUM CHLORIDE 0.9% 1,000 ML IV ONE (11:49)
[2019-09-23 11:51] LABS: Alanine Aminotransferase 26 U/L (16-61); Albumin 3.3 g/dL (3.4-5.0); Alkaline Phosphatase 64 U/L (45-117); Anion Gap 7 (5-15); Aspartate Aminotransferase 22 U/L (15-37); Bilirubin, Total 0.6 mg/dL (0.2-1.0); Blood Urea Nitrogen 16 mg/dL (7-18); Calcium 8.3 mg/dL (8.5-10.1); Carbon Dioxide 25 mmol/L (21-32); GFR African American 91 mL/min; GFR Non-African American 75 mL/min; Glucose 95 mg/dL (74-106); Total Protein 6.9 g/dL (6.4-8.2)
[2019-09-23 13:04] LABS: Urine Bacteria FEW /hpf (None Seen); Urine Blood Negative /uL (Negative); Urine Specific Gravity 1.009 (1.001-1.035); Urine WBC <1 /hpf (0 - 3)
[2019-09-23 13:14] LABS: Amphetamine Screen, Urine NEGATIVE (NEGATIVE); Barbiturate Scree,Urine NEGATIVE (NEGATIVE); Benzodiazephine Screen, Urine NEGATIVE (NEGATIVE); Cannabinoid Screen, Urine NEGATIVE (NEGATIVE); Cocaine Screen, Urine NEGATIVE (NEGATIVE); Opiate Scree,Urine NEGATIVE (NEGATIVE); Phencyclidine Screen, Urine NEGATIVE (NEGATIVE)
[2019-09-23 13:21] LABS: Alcohol, Urine < 3.0 mg/dL (0-10)
[2019-09-23 14:21] VITALS: BP 128/62
== END 2019-09-23 14:31 | disposition home or self-care (01) ==
LOC: ER 09:36
DX: R07.89 Other chest pain (principal); J32.0 Chronic maxillary sinusitis; K21.9 Gastro-esophageal reflux disease without esophagitis; E78.5 Hyperlipidemia, unspecified; I10 Essential (primary) hypertension; Z90.49 Acquired absence of other specified parts of digestive tract
CPT/HCPCS: 36415; 70450; 71045; 80053; 80307; 81001; 83735; 84443; 84484; 85025; 93005

== ENCOUNTER → 2019-10-12 | Emergency (ER) | payer OTHER, MEDICAID ==
[~2019-10-12] VITALS: Ht 172.7 cm; Wt 86.2 kg
[~2019-10-12] MED LIST changes: +ASPirin 81 mg TAB PO ONE
[2019-10-12 14:00] LABS: Basophils # (auto) 0 10 ^3/uL (0-0.2); Basophils % (auto) 0.5 % (0.0-2.0); Eosinophils # (auto) 0.1 10 ^3/uL (0-0.8); Eosinophils % (auto) 1.3 % (0.0-7.0); Hematocrit 33.6 % (41.0-53.0); Lymphocytes # (auto) 0.6 10 ^3/uL (0.4-5.4); Mean Corpuscular Hemoglobin 27.6 pg (28.0-32.0); Mean Corpuscular Hgb Conc. 32.8 g/dL (32.0-36.0); Mean Corpuscular Volume 84.2 fL (80.0-100.0); Monocytes # (auto) 0.4 10 ^3/uL (0-1.3); Monocytes % (auto) 8.1 % (0.0-12.0); Neutrophils % (auto) 79.1 % (37.0-80.0); Platelet Count (auto) 191 10^3/uL (140-450); Red Blood Cells 3.99 10^6/uL (4.5-5.90); Red Cell Distribution Width 18.4 % (11.8-14.3); White Blood Cell 5.1 10^3/uL (4.4-10.8)
[2019-10-12 14:20] LABS: Albumin 3.1 g/dL (3.4-5.0); Anion Gap 3 (5-15); Blood Urea Nitrogen 22 mg/dL (7-18); Calcium 8.2 mg/dL (8.5-10.1); Carbon Dioxide 30 mmol/L (21-32); Chloride 108 mmol/L (98-107); Glucose 103 mg/dL (74-106); Potassium 4.4 mmol/L (3.5-5.1); Sodium 141 mmol/L (136-145)
[2019-10-12 14:26] LABS: Alanine Aminotransferase 22 U/L (16-61); Alkaline Phosphatase 73 U/L (45-117); Aspartate Aminotransferase 18 U/L (15-37); Bilirubin, Total 0.3 mg/dL (0.2-1.0); GFR African American 91 mL/min; GFR Non-African American 75 mL/min; Total Protein 6.8 g/dL (6.4-8.2)
[2019-10-12 15:19] VITALS: BP 126/62
[2019-10-12 15:25] LABS: Urine Bacteria FEW /hpf (None Seen); Urine Blood TRACE /uL (Negative); Urine Mucus FEW (None Seen); Urine Specific Gravity 1.014 (1.001-1.035); Urine WBC 6 /hpf (0 - 3)
== END | disposition home or self-care (01) ==
LOC: EDUNIT# 13:16 → ER 13:26 → EDBD 13:26
DX: R07.89 Other chest pain (principal); F41.9 Anxiety disorder, unspecified; I10 Essential (primary) hypertension; E44.1 Mild protein-calorie malnutrition; K21.9 Gastro-esophageal reflux disease without esophagitis; E78.5 Hyperlipidemia, unspecified; Z90.49 Acquired absence of other specified parts of digestive tract; Z87.442 Personal history of urinary calculi; Z68.28 Body mass index [BMI] 28.0-28.9, adult
CPT/HCPCS: 36415; 71045; 80053; 81001; 84484; 85025; 93005